=== PATIENT | male | born 1950 | race Two or more races ===

== ENCOUNTER 2019-01-20 11:32 | Emergency (ER) | payer OTHER, BC ==
[~2019-01-20] VITALS: Ht 170.2 cm; Wt 108.9 kg
[2019-01-20] MEDS ORDERED: LANTUS SOL100 UNIT/1 ×2 (11:51→11:52)
[2019-01-20] MEDS ORDERED: KETO10TA2 PO (13:06)
[2019-01-20] MEDS ORDERED: TRAMADOL HCL50 MG PO (13:06)
== END 2019-01-20 13:09 | disposition home or self-care (01) ==
LOC: ER 11:32
DX: S42.392A Other fracture of shaft of left humerus, initial encounter for closed fracture (principal); X50.0XXA Overexertion from strenuous movement or load, initial encounter; Y93.89 Activity, other specified; Y92.89 Other specified places as the place of occurrence of the external cause; Y99.8 Other external cause status